=== PATIENT | male | born 1980 | race Caucasian/White ===

== ENCOUNTER 2019-01-29 17:00 | Emergency (ER) | payer OTHER ==
[~2019-01-29] VITALS: Ht 177.8 cm; Wt 79.0 kg
[2019-01-29 17:02] VITALS: Ht 177.8 cm; Wt 79.0 kg
--- NOTE | 2019-01-29 19:18 | ERD ---
ER Documentation Chief Complaint Chief Complaint RIB PAIN S/P BEING HIT WHILE PLAYING BASKETBALL HPI 38-year-old male, previously healthy, presents to the emergency department, complaining of right rib pain after being hit while playing basketball today. The patient denies shortness of breath, no anterior chest pain. ROS All systems reviewed and are negative except as per history of present illness. Medications Home Meds Active Scripts Acetaminophen* (Tylenol*) 325 Mg Tablet, 2 TAB PO Q6 PRN for PAIN AND OR ELEV ATED TEMP, #20 TAB Prov:IVETT LINARES MD 01/29/19 Ibuprofen* (Motrin*) 600 Mg Tab, 600 MG PO Q6H PRN for PAIN AND OR ELEVATED TEMP, #30 TAB Prov:IVETT LINARES MD 01/29/19 Allergies Allergies: Coded Allergies: No Known Allergy (Unverified , 01/29/19) PMhx/Soc History of Surgery: Yes (RT knee sx/LT foot sx) Hx Alcohol Use: No Hx Substance Use: No Hx Tobacco Use: No Smoking Status: Never smoker FmHx Family History: No diabetes, No coronary disease Physical Exam Vitals Vital Signs Date Temp Pulse Resp B/P (MAP) Pulse Ox O2 O2 Flow FiO2 Time Delivery Rate 01/29/19 98.0 56 17 129/77 100 Room Air 21:26 (94) 01/29/19 98.1 69 16 135/74 98 17:02 (94) Physical Exam Const: No acute distress Head: Atraumatic Eyes: Normal Conjunctiva ENT: Normal External Ears, Nose and Mouth. Neck: Full range of motion. No meningismus. Resp: Clear to auscultation bilaterally Cardio: Regular rate and rhythm, no murmurs Abd: Soft, non tender, non distended. Normal bowel sounds Skin: No petechiae or rashes Back: No midline or flank tenderness Ext: No cyanosis, or edema Neur: Awake and alert Psych: Normal Mood and Affect Results 24 hrs Current Medications Medications Dose Sig/Debbie Start Time Status Last (Trade) Ordered Route PRN Stop Time Admin Dose Reason Admin 650 mg ONCE ONCE 01/29/19 DC 01/29/19 Acetaminophen PO 19:30 19:27 (Tylenol 01/29/19 19:31 Tab) Ibuprofen 600 mg ONCE ONCE 01/29/19 DC 01/29/19 (Motrin) PO 19:30 19:27 01/29/19 19:31 Patient: BK JAIMES : 1980 Age: 38 Sex: M [id number] DOS: 01/29/191913 Ordering MD: IVETT LINARES MD Location: [facility] Room/Bed: PROCEDURE: XR Ribs. CLINICAL INDICATION: Right-sided rib pain. TECHNIQUE: Multiple oblique views of the right ribs were obtained. The images were reviewed on a PACS workstation. COMPARISON: None. FINDINGS: There is no evidence for a rib fracture. The underlying lung parenchyma is intact without evidence for pneumothorax. There is no acute cardiopulmonary disease. The soft tissues unremarkable. IMPRESSION: 1. No acute rib fracture identified. Procedures/MDM Differential diagnosis include but not limited to: Soft tissue contusion, s prain/strain, muscle spasm, fracture. Neurovascular exam grossly intact. no clinical findings suggestive of fracture, no acute deformity, no edema, no rashes. Physical examination and clinical presentation consistent most likely with rib contusion. During the ED course the patient remained stable, without complaints. Results and clinical impression discussed with patient who agrees with management. The patient is stable to be treated outpatient and will be discharged home with recommendations and close monitoring The patient was instructed to follow up with the primary care provider in the next 48h. If symptoms persist, worsen or new symptoms develop, then patient should return to the ED immediately. Instructions explained and given to patient with acknowledgment and demonstrated understanding. Disclaimer: Inadvertent spelling and grammatical errors are likely due to EHR/dictation software use and do not reflect on the overall quality of patient care. Also, please note that the electronic time recorded on this note does not necessarily reflect the actual time of the patient encounter. Departure Diagnosis: Primary Impression: Rib injury Condition: Stable Additional Instructions: Thank you very much for allowing us to participate in your care. Your health and safety is our top priority at [facility]. Call your primary care doctor TOMORROW for an appointment during the next 2-4 days and bring all the information and medications prescribed. Have prescriptions filled and follow precisely the directions on the label. If the symptoms get worse and your provider is unavailable, return to the Emergency Department immediately. IVETT LINARES MD Jan 29, 2019 19:18
[2019-01-29] MEDS ORDERED: ACET325T33 PO (19:19)
[2019-01-29] MEDS ORDERED: IBUP-1542 PO (19:19)
[2019-01-29] MEDS ORDERED: IBUPROFEN 600 MG TAB PO ONE (19:30)
[2019-01-29] MEDS ORDERED: ACETAMINOPHEN 325 MG TAB PO ONE (19:30)
[2019-01-29 21:26] VITALS: BP 129/77; PULSE 56; RESP 17
== END 2019-01-29 21:26 | disposition home or self-care (01) ==
LOC: FTE 17:00
DX: S29.9XXA Unspecified injury of thorax, initial encounter (principal); W50.0XXA Accidental hit or strike by another person, initial encounter; Y92.310 Basketball court as the place of occurrence of the external cause
CPT/HCPCS: 71100; Z7502; Z7610